=== PATIENT | female | born 1960 | race Caucasian/White ===

== ENCOUNTER 2023-03-16 06:19 | Observation (INO) | payer OTHER ==
[~2023-03-16] VITALS: Ht 154.9 cm; Wt 75.7 kg
[2023-03-16] MEDS ORDERED: ASPIRIN 325 MG TAB PO ONE (06:45)
[2023-03-16] MEDS ORDERED: HYDRALAZINE HCL 20 MG/ML VIAL IV ONE (07:15)
[2023-03-16] MEDS ORDERED: HYDRALAZINE HCL 20 MG/ML VIAL ONE (07:22)
[2023-03-16] MEDS ORDERED: ASPIRIN 325 MG TAB ONE (07:22)
[2023-03-16] MEDS ORDERED: SODIUM CHLORIDE FLUSH 10 ML SYR INJ PRN (08:30)
[2023-03-16 12:45] LABS: CREATINE KINASE 78 IU/L (29-168)
[2023-03-16 14:00] VITALS: BP 166/77; PULSE 73; RESP 18; TEMP 98.3; O2SAT 99
[2023-03-16 16:10] VITALS: BP 166/77; PULSE 73; RESP 18; TEMP 98.3; O2SAT 99
[2023-03-16] MEDS ORDERED: HYDRALAZINE HCL 20 MG/ML VIAL IV PRN (16:45)
[2023-03-16] MEDS ORDERED: VITAMIN D PO (17:08)
[2023-03-16] MEDS ORDERED: DOCUSATE SODIU100 MG PO (17:08)
[2023-03-16] MEDS ORDERED: LYSINE1000 MG PO (17:08)
[2023-03-16] MEDS ORDERED: WELLBUTRIN XL300 MG PO (17:08)
[2023-03-16] MEDS ORDERED: VITAMIN B-6100 MG PO (17:08)
[2023-03-16] MEDS: LOSARTAN POTASSIUM 25 MG TAB PO SCH (17:30)
[2023-03-16] MEDS: ACETAMINOPHEN 325 MG TAB PO PRN ×2 (18:58→23:57)
[2023-03-16 19:06] LABS: CREATINE KINASE 93 IU/L (29-168)
[2023-03-16 20:48] VITALS: BP 158/85; PULSE 85; RESP 18; TEMP 98; O2SAT 98
[2023-03-16 20:49] VITALS: BP 158/85; PULSE 85; RESP 18; TEMP 98; O2SAT 98
[2023-03-16] MEDS ORDERED: ATORVASTATIN 40 MG TAB PO SCH ×2 (21:00)
[2023-03-17] VITALS: BP 144/67; PULSE 88; RESP 18; TEMP 98; O2SAT 100
[2023-03-17 04:00] VITALS: BP 146/75; PULSE 92; RESP 18; TEMP 98.1; O2SAT 100
[2023-03-17] MEDS: ACETAMINOPHEN 325 MG TAB PO PRN ×2 (04:17→12:34)
[2023-03-17 05:16] LABS: MAGNESIUM 2.1 MG/DL (1.3-2.1); PHOSPHORUS 3.8 MG/DL (2.3-4.7)
[2023-03-17 05:36] LABS: FREE THYROXINE INDEX 2.3537 (1.4-3.8); THYROID STIMULATING HORMONE 2.865 uIU/mL (0.350-4.940)
[2023-03-17 05:42] LABS: CREATINE KINASE 75 IU/L (29-168)
[2023-03-17 06:02] LABS: CHOL/HDL RATIO 7.6 (3.0-3.6)
[2023-03-17 08:00] VITALS: BP 146/67; PULSE 70; RESP 20; TEMP 98.2; O2SAT 100
[2023-03-17 08:17] VITALS: BP 146/67; PULSE 70; RESP 20; TEMP 98.2; O2SAT 100
[2023-03-17] MEDS ORDERED: EZETIMIBE 10 MG TAB PO SCH (09:00)
[2023-03-17] MEDS ORDERED: ASPIRIN 81 MG ENTERIC COATED PO SCH (09:00)
[2023-03-17] MEDS: LOSARTAN POTASSIUM 25 MG TAB PO SCH (12:38)
[2023-03-17] MEDS ORDERED: ASPIRIN EC81 MG PO (16:49)
[2023-03-17] MEDS ORDERED: ZETIA10 MG PO (16:53)
[2023-03-17] MEDS ORDERED: COZAAR25 MG PO (16:53)
[2023-03-17 17:08] VITALS: BP 143/96; PULSE 91; RESP 19; TEMP 98.1; O2SAT 99
== END 2023-03-17 17:26 | disposition home or self-care (01) ==
LOC: FSED 06:40 → ERHOLD 08:28 → MED/SURG 13:55
PROVIDERS: ADMIT Family Medicine Adult Medicine; ATTEND Family Medicine Adult Medicine
DX: I16.0 Hypertensive urgency (principal); R07.9 Chest pain, unspecified; F41.9 Anxiety disorder, unspecified; F32.A Depression, unspecified; F17.210 Nicotine dependence, cigarettes, uncomplicated; E66.9 Obesity, unspecified; E78.5 Hyperlipidemia, unspecified; Z88.6 Allergy status to analgesic agent; Z88.1 Allergy status to other antibiotic agents; Z88.8 Allergy status to other drugs, medicaments and biological substances; Z20.822 Contact with and (suspected) exposure to COVID-19; Z79.82 Long term (current) use of aspirin; Z79.899 Other long term (current) drug therapy; Z68.31 Body mass index [BMI] 31.0-31.9, adult; Z86.69 Personal history of other diseases of the nervous system and sense organs
CPT/HCPCS: 36415 ×2; 70450; 70551; 71046; 78452; 80048; 80061; 80076; 82550 ×2; 82553 ×2; 83735; 84100; 84436; 84443; 84479; 84484 ×2; 85025; 93005; 93017 ×2; 93306; 99284; A9502; G0378 ×2; J0360; U0002